=== PATIENT | male | born 1960 | race Caucasian/White ===

== ENCOUNTER → 2017-12-10 | Outpatient (CLI) | payer OTHER ==
--- NOTE | 2017-12-11 01:31 | CT ---
EXAMINATION TYPE: CT sinus wo con DATE OF EXAM: 12/10/2017 COMPARISON: None HISTORY: 56-year-old male chronic sinusitis, PRE OP FOR SINUS SX TECHNIQUE: Contiguous axial scanning of the paranasal sinuses without IV contrast. Imaging performed for sinonasal surgery navigation. CT DLP: 674 mGycm Automated exposure control for dose reduction was used. FINDINGS: Extensive lobulated polyposis of the nasal cavity extending into the ethmoid air cells. There has been prior medial maxillary antrectomies on both sides. Suspect chronic remodeling leading to marked thinning of the nasal bones and nasal septum as well as some portions of the medial orbital steel. [id number] mucosal thickening maxillary sinuses. Moderate to severe mucosal thickening right gr eater than left frontal sinuses and bilateral ethmoid air cells. Mild mucosal thickening sphenoid sin uses. Cerumen in the bilateral external auditory canals. Mastoid air cells are well pneumatized. Mild reactive new osteogenesis of the maxillary sinus steel. Globes appear intact. Mild generalized supratentorial volume loss. IMPRESSION: 1. SEVERE POLYPOSIS OF THE NASAL CAVITY WITH PRIOR MEDIAL MAXILLARY ANTRECTOMIES. 2. MODERATE TO SEVERE CHRONIC SINUS DISEASE INVOLVING THE ETHMOID AIR CELLS, RIGHT GREATER THAN LEFT FRONTAL SINUSES, AND MILD TO MODERATE INVOLVING THE MAXILLARY AND SPHENOID SINUSES. 3. IMAGING PERFORMED FOR PREOPERATIVE PLANNING AND NAVIGATION.
== END | disposition home or self-care (01) ==
LOC: RADCTMAIN 15:00
PROVIDERS: ATTEND Otolaryngology
DX: J33.0 Polyp of nasal cavity (principal); J32.0 Chronic maxillary sinusitis; J32.1 Chronic frontal sinusitis; J32.2 Chronic ethmoidal sinusitis; J32.3 Chronic sphenoidal sinusitis; Z98.890 Other specified postprocedural states
CPT/HCPCS: 70486

== ENCOUNTER 2017-12-24 07:16 | Day surgery (SDC) | payer OTHER ==
[2017-12-18 13:43] VITALS: BMI 34.7
[~2017-12-24 07:16] MED LIST: CLINDAMYCIN 900 MG in DEXTROSE 5% IN WATER 50 ML IVPB ONE; DEXAMETHASONE SOD PHOSPHATE 10 MG/ML 1 ML VIAL IV ONE; DEXAMETHASONE SOD PHOSPHATE 20 MG in DEXTROSE 5% IN WATER 50 ML IV ONE; HYDROmorphone 0.5 MG/0.5 ML SYRINGE IVP PRN; LACTATED RINGERS 1,000 ML IV SCH; ONDANSETRON 4 MG/2 ML VIAL IVP ONE
[2017-12-24] MEDS: OXYMETAZOLINE 0.05% NASL SPRAY 1 SPRAY BOTTLE EA NOSTRIL ONE ×5 (07:42→08:06)
[2017-12-24 07:49] VITALS: RESP 16
[2017-12-24] MEDS ORDERED: LIDOCAINE 1% 20 ML VIAL (10MG/ML) FOR IV START INTRADERMA ONE (07:58)
[2017-12-24] MEDS ORDERED: FAMOTIDINE 20 MG/2 ML VIAL IVP ONE (08:00)
[2017-12-24 08:01] LABS: Glucose,Whole Blood 123 mg/dL (75-99)
[2017-12-24] MEDS ORDERED: ROCURONIUM BROMIDE 10 MG/ML 10 ML VIAL IV ONE (08:37)
[2017-12-24] MEDS ORDERED: NEOSTIGMINE 1 MG/ML 10 ML VIAL ONE (08:37)
[2017-12-24] MEDS ORDERED: PHENYLEPHRINE-0.9% NACL SYG 1 MG/10 ML SYRINGE ONE (08:37)
[2017-12-24] MEDS ORDERED: MIDAZOLAM 2 MG/2 ML VIAL ONE (08:37)
[2017-12-24] MEDS ORDERED: LIDOCAINE 1% INJ 10MG/ML (20 ML MDV) ONE (08:37)
[2017-12-24] MEDS ORDERED: fentaNYL (PF) 50 MCG/ML 2 ML AMP ONE (08:37)
[2017-12-24] MEDS ORDERED: PROPOFOL 10 MG/ML 20 ML VIAL IV ONE (08:37)
[2017-12-24] MEDS ORDERED: GLYCOPYRROLATE 0.2 MG/ML 2 ML VIAL ONE (08:37)
[2017-12-24] MEDS ORDERED: DEXAMETHASONE SOD PHOS (MDV) 100 MG/10 ML VIAL ONE (08:37)
[2017-12-24] MEDS ORDERED: ePHEDrine SULFATE/0.9% NACL/PF 50 MG/5 ML SYRINGE IV ONE (08:37)
[2017-12-24] MEDS ORDERED: SUCCINYLCHOLINE CHLORIDE 100 MG/5 ML SYR IV ONE (08:37)
[2017-12-24] MEDS ORDERED: FLUORESCEIN STRIPS 1 MG STRIP MISCELLANE ONE ×2 (08:53)
[2017-12-24] MEDS ORDERED: LIDOCAINE 1%-EPI 1:100,000 20 ML VIAL SQ ONE ×2 (08:53)
[2017-12-24] MEDS ORDERED: EPINEPHrine 1 MG/ML (MDV) 30 ML VIAL IRRIGATION ONE ×2 (08:54)
--- NOTE | 2017-12-24 10:27 | P.OP ---
Date of Procedure: 12/24/17 Preoperative Diagnosis: Chronic pansinusitis Massive sinonasal polyposis Hypertrophy of inferior turbinates Postoperative Diagnosis: Same Procedure(s) Performed: Image guided functional endoscopic sinus surgery Sinonasal polypectomy Bilateral submucosal resection of the inferior turbinates with outfracturing compression Anesthesia: TAMANNA Surgeon: Kevin Isaac Estimated Blood Loss (ml): 20 Pathology: other (Sinonasal) Condition: stable Disposition: PACU Indications for Procedure: This patient presented to the office with 6-12 months of severe nasal congestion sneezing watery eyes total anosmia itching drainage. 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 He has sinonasal surgery and polypectomy in 1995. He request for the polypectomy. All risks, benefits, and alternative therapies were discussed. Consent was obtained and all questions were answered. I did review the results of the CAT scan showing significant bony erosion from the polyps. Operative Findings: Massive sinonasal polyposis of all sinuses and intranasally noted. Frozen section was performed to confirm that they were polyps and not inverting papilloma. Inferior turbinates were large and obstructive they were corrected also. Description of Procedure: This patient was taken to the operative room and placed in the supine position. A general inhalation anesthetic was administered to the patient by the department of anesthesia with a functioning IV line in place. The patient was monitored throughout the entire case by the department of anesthesia. The eyes were taped shut for protection. The patient was placed in a slight reverse Trendelenburg position. The patient had previously utilize Afrin nasal spray preoperatively. The nose was evaluated and the septum lateral nasal wall and inferior turbinates were injected with lidocaine 1% with epinephrine 1 100,000 bilaterally. Approximately 10 minutes were allowed wait for full vasoconstrictive effects to take place. This patient had image guided registration utilizing a Hitch system. We registered this system and used anatomic verification. We utilized the system throughout the entire surgery for anatomic verification. We then entered the nose with a 0 and 30 Sherwood nixon endoscope. Patient required intranasal polyp ectomy prior to the injection. Massive amounts of polyps were removed directly with direct visualization and a Ermias. Again the intranasal polyps were massive. We also utilized balloon technology to help assist in opening the frontal sinuses. Diseased tissue though and polyps were removed from the frontal sinuses with the assistance of the balloon. Previous to this we did inject the lateral nasal wall and middle turbinate and uncinate process with lidocaine 1% with epinephrine 1 100,000. Approximately 10 minutes were allowed wait for full vasoconstrictive effects to take place. Intranasal polyps were noted. They were noted bilaterally. The intranasal polyps were removed with use of a microdebrider. With use of a microdebrider and a pediatric backbiter, we took down the uncinate process bilaterally. We then opened the maxillary sinuses bilaterally. We utilized a microdebrider for this and entered the maxillary sinuses and removed diseased tissue and polypoid tissue. This was done bilaterally. After the maxillary sinuses were opened and the diseased tissue and polyps were removed we entered the ethmoid bulla and with use of a microdebrider and up-biting boss and Blakesley, we remove the anterior septations and remove diseased tissue from the anterior ethmoids with direct visualization. We then followed the fovea frontalis through the basal lamella and into the posterior ethmoid air cells and did a total ethmoidectomy with removal of polypoid material. Once the ethmoids cells were all taken down we then entered the sphenoid sinus medially and inferiorly underneath the inferior attachment of the superior turbinate. The sphenoid sinus was opened entered and diseased tissue and polyps were removed bilaterally. This was done with a microdebrider and Blakesley. We then entered the frontal sinuses with a giraffe and up-biting Blakesley entered on the agar nasi cells. We open the frontal sinuses and removed sinus tissue and polypoid tissue that was diseased. We explored the frontal sinuses bilaterally. To summarize all sinuses were open all sinuses were explored and we remove diseased tissue and polyps from the sphenoid maxillary and frontal sinuses. Polyps were removed from the nose. Ethmoid sinuses were opened totally. We inserted bilateral intranasal iodoform gauze packing. We utilized 2 inch gauze packing for control of bleeding. We reinspected the skull base there is no signs of any orbital penetration or signs of any intracranial penetration. The sugical site was reinspected after the packing was placed and no bleeding was seen. Attention was then paid to the inferior turbinates. The bilateral inferior turbinates were hypertrophic and obstructive. We entered the anterior portion of the inferior turbinates with use of a microdebrider. We remove bone and submucosal elements with use of a microdebrider bilaterally. The inferior turbinates underwent a submucosal resection with removal of submucosal tissue and bone. We obtained a much better and normal in size for breathing. The inferior turbinates were then outfractured and compressed with a pinion-pins nasal elevator. Excellent airway was obtained and was symmetric bilaterally. No bleeding was encountered. No splints were required
[2017-12-24 10:35] VITALS: TEMP 98
[2017-12-24 10:35] LABS: Glucose,Whole Blood 230 mg/dL (75-99)
[2017-12-24] MEDS ORDERED: INSULIN ASPART 100 UNIT/ML 1 ML 10 ML VIAL SQ ONE (10:39)
[2017-12-24] MEDS ORDERED: ONDANSETRON 4 MG/2 ML VIAL IVP ONE (11:01)
[2017-12-24] MEDS ORDERED: METOCLOPRAMIDE 5 MG/ML 2 ML VIAL IVP ONE (11:10)
[2017-12-24] MEDS ORDERED: PROMETHAZINE INJ 25 MG/ML 1 ML VIAL IVPB ONE (11:26)
[2017-12-24 12:59] VITALS: BP 148/72; PULSE 100
== END 2017-12-24 13:07 | disposition home or self-care (01) ==
LOC: OR 07:16
PROVIDERS: ATTEND Otolaryngology
DX: J32.4 Chronic pansinusitis (principal); J33.8 Other polyp of sinus; J34.3 Hypertrophy of nasal turbinates; J45.909 Unspecified asthma, uncomplicated; E11.9 Type 2 diabetes mellitus without complications; I10 Essential (primary) hypertension; E07.9 Disorder of thyroid, unspecified; Z88.0 Allergy status to penicillin; Z88.6 Allergy status to analgesic agent; Z91.048 Other nonmedicinal substance allergy status; Z82.5 Family history of asthma and other chronic lower respiratory diseases; Z83.3 Family history of diabetes mellitus; Z82.49 Family history of ischemic heart disease and other diseases of the circulatory system; Z79.84 Long term (current) use of oral hypoglycemic drugs; Z79.899 Other long term (current) drug therapy
CPT/HCPCS: 88304; 88305; 88331; 31267; 31259; 30140; 31276; C1726; J0171; J2250; J1100 ×2; J2550; J2710; J2765; J2405; J2001; J3010; J2370; J0330; J2704

== ENCOUNTER → 2019-02-28 | Outpatient (CLI) | payer OTHER ==
--- NOTE | 2019-02-28 12:05 | P.STRESS ---
- Stress Test Note Stress Test Results/Findings: Exam Performed: stress echo exercise with con Exam Date: 02/28/19 Reason for Exam: SOB Height: 6 ft Weight: 126.099 kg Protocol: STRESS ECHO WITH LUMASON Stage: II Duration of Exercise: 5 Resting Heart Rate: 87 Resting Blood Pressure: 150/70 Maximum Achieved Heart Rate: 142 Maximum Achieved Blood Pressure: 214/81 85% PMHR: 136 100% PMHR: 160 METS: 6.8 Technologist Comment: Stress Test Results/Findings: This is a 58-year-old gentleman with history of hypertension, diabetes and hypercholesterolemia who is been experiencing exertional shortness of breath. Stress data Baseline EKG showed sinus rhythm with a mild ST-T changes in inferolateral leads. Blood pressure at rest is 150/76 with pulse rate of 87. Patient walked on the Juliano protocol about 5 minutes achieving a maximal heart rate of 142 with blood pressure 188/74. EKGs taken during exercise showed more pronounced ST-T abnormalities in the inferolateral leads and ST segments appear to be downsloping. Patient became short of breath. Echo data: Baseline echo images showed normal wall motion and thickening. Exercise echo images showed hypokinesia of the mid and apical septum, mid and apical anterior wall, inferoapical and apical segments suggestive of ischemia. Recovery images showed normalization of the LV function. Final impression: #1. No Baseline EKG showed mild ST-T abnormalities, the stress test is felt to be positive. #2. Positive stress echo with ischemia involving the anteroapical, inferoapical and apical segments.
== END | disposition home or self-care (01) ==
LOC: RADNMMAIN 09:52
PROVIDERS: ATTEND Family Medicine
DX: I25.89 Other forms of chronic ischemic heart disease (principal)
CPT/HCPCS: 93351; Q9950